=== PATIENT | male | born 1950 | race Caucasian/White ===

== ENCOUNTER 2023-09-13 22:06 | Emergency (ER) | payer OTHER ==
[~2023-09-13] VITALS: Ht 157.5 cm; Wt 73.9 kg
[2023-09-13 22:42] VITALS: BP 157/72; PULSE 68; RESP 18; TEMP 97.8; O2SAT 99
[2023-09-14] MEDS ORDERED: CEPH-588 PO (00:44)
[2023-09-14] MEDS ORDERED: BACTO TP (00:44)
[2023-09-14] MEDS ORDERED: SULF-59 PO (00:44)
[2023-09-14 00:53] VITALS: BP 157/72; PULSE 68; RESP 18; TEMP 97.8; O2SAT 99
== END 2023-09-14 00:53 | disposition home or self-care (01) ==
LOC: MED 22:06
DX: L03.211 Cellulitis of face (principal); Z79.899 Other long term (current) drug therapy
CPT/HCPCS: 99283